=== PATIENT | female | born 1995 | race Asian ===

== ENCOUNTER 2020-08-15 14:35 | Emergency (ER) | payer MEDICAID ==
[~2020-08-15] VITALS: Ht 152.4 cm; Wt 49.1 kg
[2020-08-15 14:37] VITALS: BP 105/78
== END 2020-08-15 15:23 | disposition home or self-care (01) ==
LOC: EMS 14:41
DX: S60.312A Abrasion of left thumb, initial encounter (principal); W54.0XXA Bitten by dog, initial encounter; Y93.89 Activity, other specified; Y92.89 Other specified places as the place of occurrence of the external cause; Y99.8 Other external cause status
CPT/HCPCS: 99281; Z7502

== ENCOUNTER 2020-09-30 10:05 | Emergency (ER) | payer MEDICAID ==
[~2020-09-30] VITALS: Ht 149.9 cm; Wt 45.5 kg
[2020-09-30 10:11] VITALS: BP 102/65
[2020-09-30] MEDS ORDERED: LIDOCAINE 1%/EPI 1:200,000/PF 30 ML VIAL ONE (14:53)
== END 2020-09-30 10:44 | disposition home or self-care (01) ==
LOC: EMS 10:15
DX: H11.421 Conjunctival edema, right eye (principal)
CPT/HCPCS: 99283; J3490

== ENCOUNTER 2021-01-01 07:58 | Emergency (ER) | payer BC, MEDICAID ==
[~2021-01-01] VITALS: Ht 149.9 cm; Wt 50.0 kg
[2021-01-01] MEDS ORDERED: ACET-2744 PO (07:59)
[2021-01-01 08:02] VITALS: BP 111/75
[2021-01-01] MEDS ORDERED: DEXAMETHASONE SOD PHOS 4 MG/ML 5 ML VIAL IM ONE (09:15)
[2021-01-01] MEDS ORDERED: IBUPROFEN 400 MG TABLET PO ONE (09:15)
[2021-01-01] MEDS ORDERED: AZITHROMYCIN 500 MG TABLET PO ONE (10:00)
[2021-01-01] MEDS ORDERED: LIDOCAINE/PF 1% 2 ML VIAL IM ONE (10:00)
[2021-01-01] MEDS ORDERED: CefTRIAXone SODIUM 1 GM/VIAL IM ONE (10:00)
== END 2021-01-01 10:29 | disposition home or self-care (01) ==
LOC: EMS 07:59
DX: J02.9 Acute pharyngitis, unspecified (principal)
CPT/HCPCS: 87430; 96372; 99284; J0696; J1100; J3490; Q9967